=== PATIENT | female | born 1990 | race African-American/Black ===

== ENCOUNTER 2017-10-10 19:07 | Emergency (ER) | payer SELFPAY ==
[2017-10-10] MEDS ORDERED: Lisinopril TAB* 10 MG PO ONE (19:27)
--- NOTE | 2017-10-10 19:38 | ED ---
Gabino Mejia Elizabeth, scribed for Paresh Coker MD on 10/10/17 at 1936 . Dizziness - HPI Summary HPI Summary: This patient is a 27 year old F presenting to [facility] with a chief complaint of dizziness since this afternoon. The patient has hx of HTN and takes lisinopril. The patient forgot to take her dose of lisinopril this morning before leaving for work. After the onset of dizziness, the patient took her BP at work and notes that it was high (160/120). Symptoms alleviated by lying down. Patient denies any other symptoms. She notes that her dizziness has resolved since arrival to [facility]. - History Of Current Complaint Chief Complaint: EDDizziness Stated Complaint: HYPERTENSION Time Seen by Provider: 10/10/17 19:20 Hx Obtained From: Patient Onset/Duration: Resolved Timing: Hours Severity Initially: Mild Severity Currently: Mild Character: Dizzy Alleviating Factor(s): Lying Down Associated Signs And Symptoms: Positive: Other: - HTN - Allergies/Home Medications Home Medications: Home Medications Lisinopril 2.5 MG- 10/10/17 [History] PMH/Surg Hx/FS Hx/Imm Hx Cardiovascular History: Reports: Hx Hypertension Respiratory History: Denies: Hx Chronic Obstructive Pulmonary Disease (COPD) Infectious Disease History: No Infectious Disease History: Denies: Traveled Outside the [place] in Last 30 Days - Family History Known Family History: Positive: Hypertension Review of Systems Negative: Fever Negative: Epistaxis Negative: Abdominal Pain Neurological: Other - POSITIVE DIZZINESS All Other Systems Reviewed And Are Negative: Yes Physical Exam - Summary Physical Exam Summary: VITAL SIGNS: Reviewed. GENERAL: Patient is a well-developed and nourished female who is lying comfortable in the stretcher. Patient is not in any acute respiratory distress. HEAD AND FACE: No signs of trauma. No ecchymosis, hematomas or skull depressions. No sinus tenderness. EYES: PERRLA, EOMI x 2, No injected conjunctiva, no nystagmus. EARS: Hearing grossly intact. Ear canals and tympanic membranes are within normal limits. MOUTH: Oropharynx within normal limits. NECK: Supple, trachea is midline, no adenopathy, no JVD, no carotid bruit, no c- spine tenderness, neck with full ROM. CHEST: Symmetric, no tenderness at palpation LUNGS: Clear to auscultation bilaterally. No wheezing or crackles. CVS: Regular rate and rhythm, S1 and S2 present, no murmurs or gallops appreciated. ABDOMEN: Soft, non-tender. No signs of distention. No rebound no guarding, and no masses palpated. Bowel sounds are normal. EXTREMITIES: FROM in all major joints, no edema, no cyanosis or clubbing. NEURO: Alert and oriented x 3. No acute neurological deficits. Speech is normal and follows commands. SKIN: Dry and warm Triage Information Reviewed: Yes Vital Signs On Initial Exam: Initial Vitals Temp Pulse Resp BP Pulse Ox 98.7 F 70 16 138/109 99 10/10/17 19:16 10/10/17 19:16 10/10/17 19:16 10/10/17 19:16 10/10/17 19:16 Vital Signs Reviewed: Yes Diagnostics - Vital Signs Vital Signs Temp Pulse Resp BP Pulse Ox 10/10/17 19:17 67 19 100 10/10/17 19:16 98.7 F 66 18 138/109 99 - Laboratory Lab Statement: Any lab studies that have been ordered have been reviewed, and results considered in the medical decision making process. Dizzy Course/Dx - Course Course Of Treatment: In the ED course, the patient was given a dose of lisinopril. Patient will be discharged home. - Diagnoses Provider Diagnoses: Hypertension Discharge - Sign-Out/Discharge Documenting (check all that apply): Discharge/Admit/Transfer - Discharge Plan Condition: Stable Disposition: HOME Patient Education Materials: Hypertension (ED) Referrals: [facility] PH[facility]IAN REFERRAL [Outside] - 2 Days Additional Instructions: Return to the emergency department with any new or worsening symptoms. The documentation as recorded by the Gabino nunez Elizabeth accurately reflects the service I personally performed and the decisions made by John Paul lombardi Abdul, MD.
[2017-10-10 19:53] VITALS: BP 150/98
== END 2017-10-10 19:53 | disposition home or self-care (01) ==
LOC: ED 19:07
DX: I10 Essential (primary) hypertension (principal)
CPT/HCPCS: 99282; A9270-GY